=== PATIENT | male | born 1985 | race Caucasian/White ===

== ENCOUNTER 2017-04-03 19:40 | Emergency (ER) | payer BC ==
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
[2017-04-03 22:47] VITALS: BP 138/90
--- NOTE | 2017-04-05 16:20 | CR ---
EXAM DATE: 04/03/17 PATIENT'S AGE: 31 Patient: DOMINIQUE CALERO Facility: [place], [place] Site . Site : 1985 Study: XRay Extremity Left [id number] 9:03:45 PM Ordering Physician: Doctor Horvath Final Report: INDICATION: Trauma. TECHNIQUE: Three views of the left hand. COMPARISON: None. IMPRESSION: No fracture, subluxation or dislocation. Soft tissue swelling is noted. No radiopaque foreign body is identified. Dictated by Kyle Marin MD @ 04/03/2017 9:39:33 PM Dictated by: Kyle Marin MD @ 04/03/2017 21:39:55 (Electronic Signature) Report Signed by Proxy. TOÑO
== END 2017-04-03 22:05 ==
LOC: MW.ED 19:40
DX: M79.642 Pain in left hand (principal); R22.32 Localized swelling, mass and lump, left upper limb
CPT/HCPCS: 73130-26-LT; 73130-LT; 99283

== ENCOUNTER 2017-07-03 12:24 | Emergency (ER) | payer BC ==
--- NOTE | 2017-07-03 12:45 | EDM.PDOC ---
ED HPI GENERAL MEDICAL PROBLEM - General Chief Complaint: Lower Extremity Injury/Pain Stated Complaint: PT HAS POSSIBLE GOUT IN RT FOOT Time Seen by Provider: 07/03/17 12:40 Source of Information: Reports: Patient History Limitations: Reports: No Limitations - History of Present Illness INITIAL COMMENTS - FREE TEXT/NARRATIVE: HISTORY AND PHYSICAL: []32-year-old male presenting with foot pain on his right side History of Present Illness: []Patient has history of gout this has been causing pain for the last week now is moving down to his big toe and up to his ankle with pain Review of Systems: As per history of present illness and below otherwise all systems reviewed and negative. Past medical history: As per history of present illness and as reviewed below otherwise noncontributory. Surgical history: As per history of present illness and as reviewed below otherwise noncontributory. Social history: No reported history of drug or alcohol abuse. Family history: As per history of present illness and as reviewed below otherwise noncontributory. Physical exam: Alert and oriented gentleman who does not look acutely ill uncomfortable and trying to take his boot off. Answering questions appropriately in full sentences without any shortness of breath. HEENT: Atraumatic, normocehpalic, pupils reactive, negative for conjunctival pallor or scleral icterus, mucous membranes moist, throat clear, neck supple, nontender, trachea midline. Lungs: Clear to auscultation, breath sounds equal bilaterally, chest non tender. Heart: S1S2, regular, negative for clicks, rubs, or JVD. Abdomen: Soft, nondistended, nontender. Negative for masses or hepatossplenmegaly. Negative for costovertebral tenderness. Pelvis: Stable nontender. Genitourinary: Deferred. Rectal: Deferred Extremities: Atraumatic, negative for cords or calf pain. Right foot with erythema across the dorsum slight erythema starting to the great toe mild edema pain with flexion and extension Neurovascular unremarkable. Neuro: Awake, alert, oriented. Cranial nerves II through XII unremarkable. Cerebellum unremarkable. Motor and sensory unremarkable throughout. Exam nonfocal. Diagnostics: [Uric acid] Therapeutics: [] Impression: [Gout right foot] Plan: []Discharged to home Indomethacin Follow up with a primary care provider Definitive disposition and diagnosis as appropriate pending reevaluation and review of above. Onset: Gradual Duration: Day(s): (4) Location: Reports: Lower Extremity, Right Quality: Reports: Same as Previous Episode Severity: Moderate Improves with: Reports: None Worsens with: Reports: None Associated Symptoms: Reports: No Other Symptoms right foot Pain Score (Numeric/FACES): 9 - Related Data Allergies Allergy/AdvReac Type Severity Reaction Status Date / Time No Known Allergies Allergy Verified 07/03/17 12:40 Home Meds: Home Meds Indomethacin 50 mg PO Q8HR #30 capsule 07/03/17 [Rx] Past Medical History Neurological History: Reports: Brain Injury Psychiatric History: Reports: Depression - Infectious Disease History Infectious Disease History: Reports: Chicken Pox, Measles, Pertussis (Whooping Cough) - Past Surgical History Musculoskeletal Surgical History: Reports: Other (See Below) Other Musculoskeletal Surgeries/Procedures:: L ankle reconstructive surgery Social & Family History - Family History Family Medical History: Noncontributory - Tobacco Use Smoking Status *Q: Never Smoker Years of Tobacco use: 15 Packs/Tins Daily: 0.2 Second Hand Smoke Exposure: No - Caffeine Use Caffeine Use: Reports: Coffee, Energy Drinks, Soda, Tea - Alcohol Use Days Per Week of Alcohol Use: 2 Number of Drinks Per Day: 5 Total Drinks Per Week: 10 - Recreational Drug Use Recreational Drug Use: Yes Drug Use in Last 12 Months: No Review of Systems - Review of Systems Review Of Systems: ROS reveals no pertinent complaints other than HPI. ED EXAM, GENERAL - Physical Exam Exam: See Below (see dictation) Course - Vital Signs Last Recorded V/S: Last Vital Signs Temp 37.1 C 07/03/17 12:41 Pulse 109 H 07/03/17 12:41 Resp 18 07/03/17 12:41 BP 153/104 H 07/03/17 12:41 Pulse Ox 96 07/03/17 12:41 - Orders/Labs/Meds Orders: Active Orders 24 hr Category Date Time Status URIC ACID [CHEM] Stat Lab 07/03/17 13:37 Received Departure - Departure Time of Disposition: 14:05 Disposition: Home, Self-Care 01 Condition: Good Clinical Impression: Gout attack Qualifiers: Gout site: foot Gout etiology: unspecified cause Laterality: right Qualified Code(s): M10.9 - Gout, unspecified - Discharge Information Prescriptions: Indomethacin 50 mg PO Q8HR #30 capsule Referrals: PCP,None [Primary Care Provider] - Forms: ED Department Discharge Additional Instructions: The following information is given to patients seen in the emergency department who are being discharged to home. This information is to outline your options for follow-up care. We provide all patients seen in our emergency department with a follow-up referral. The need for follow-up, as well as the timing and circumstances, are variable depending upon the specifics of your emergency department visit. If you don't have a primary care physician on staff, we will provide you with a referral. We always advise you to contact your personal physician following an emergency department visit to inform them of the circumstance of the visit and for follow-up with them and/or the need for any referrals to a consulting specialist. The emergency department will also refer you to a specialist when appropriate. This referral assures that you have the opportunity for followup care with a specialist. All of these measure are taken in an effort to provide you with optimal care, which includes your followup. Under all circumstances we always encourage you to contact your private physician who remains a resource for coordinating your care. When calling for followup care, please make the office aware that this follow-up is from your recent emergency room visit. If for any reason you are refused follow-up, please contact the [facility] emergency department at and asked to speak to the emergency department charge nurse. You've been found to have gout involving the emergency department Indomethacin has been ordered and sent to your pharmacy Follow-up with your primary care provider - My Orders Last 24 Hours: My Active Orders 07/03/17 13:37 URIC ACID [CHEM] Stat - Assessment/Plan Last 24 Hours: My Active Orders 07/03/17 13:37 URIC ACID [CHEM] Stat
[2017-07-03 14:18] VITALS: BP 154/80
== END 2017-07-03 14:17 | disposition home or self-care (01) ==
LOC: MW.ED 12:24
DX: M10.9 Gout, unspecified (principal); Z79.899 Other long term (current) drug therapy
CPT/HCPCS: 36415; 84550; 99282; 99283